=== PATIENT | female | born 1940 | race Caucasian/White ===

== ENCOUNTER 2017-08-02 10:24 | Emergency (ER) | payer OTHER ==
[~2017-08-02] VITALS: Ht 154.9 cm; Wt 78.1 kg
[2017-08-02 12:26] VITALS: BP 203/94
== END 2017-08-02 12:27 | disposition home or self-care (01) ==
LOC: EME → EDBD 10:24 → EME 10:24
DX: S20.219A Contusion of unspecified front wall of thorax, initial encounter (principal); R91.1 Solitary pulmonary nodule; M54.2 Cervicalgia; V47.0XXA Car driver injured in collision with fixed or stationary object in nontraffic accident, initial encounter; Y92.481 Parking lot as the place of occurrence of the external cause; E11.9 Type 2 diabetes mellitus without complications; Z88.1 Allergy status to other antibiotic agents; Z88.5 Allergy status to narcotic agent; Z88.8 Allergy status to other drugs, medicaments and biological substances
CPT/HCPCS: 71020; 72040; 99281; 99283